=== PATIENT | female | born 1955 | race Caucasian/White ===

== ENCOUNTER 2020-08-08 16:27 | Emergency (ER) | payer BC, SELFPAY ==
[2020-08-08 16:28] VITALS: BP 153/111; PULSE 79; PULSE 86; RESP 18; TEMP 36.8; O2SAT 98; O2SAT 99; BMI 24.8
--- NOTE | 2020-08-08 16:45 | RAD_ITS ---
STUDY: X-RAY - RIGHT SHOULDER REASON FOR EXAM: Female, 65 years old. fall out of truck, right shoulder pain TECHNIQUE: 3 view(s) of the shoulder. COMPARISON: None. FINDINGS: Normal glenohumeral articulation. Normal acromioclavicular joint. Normal acromion. Right clavicle fracture is described on right clavicle x-ray report. Normal humeral head and visualized proximal humerus. The soft tissue structures are unremarkable. Normal visualized pulmonary apex. RAD/Shoulder min 2 Views IMPRESSION: Right clavicle fracture. No additional fracture or malalignment. Electronically Signed: Juan Alberto Marr MD ([facility]) at 17:11 EDT , Service support ,
[2020-08-08] MEDS: fentaNYL 100 MCG/2 ML Ampul 50 MCG IM (16:50)
[2020-08-08] MEDS: Ondansetron ODT 4 MG Tablet PO (16:51)
--- NOTE | 2020-08-08 16:55 | RAD_ITS ---
STUDY: X-RAY - RIGHT CLAVICLE REASON FOR EXAM: Female, 65 years old. fall out of truck, shoulder pain TECHNIQUE: 2 view(s) of the clavicle. COMPARISON: None. FINDINGS: Transverse mildly comminuted fracture of the distal third right clavicle with approximately one shaft width displacement and moderate degree of foreshortening. Normal acromioclavicular articulation. Normal visualized sternoclavicular articulation. Normal visualized pulmonary apex. RAD/Clavicle IMPRESSION: Right clavicle fracture. Electronically Signed: Juan Alberto Marr MD ([facility]) at 17:12 EDT , Service support ,
--- NOTE | 2020-08-08 17:27 | ED.DCSUM_ITS ---
- ER Visit Summary Date of Service: 08/08/20 Chief Complaint: Fall History of Present Illness: The patient is a 65 F who lives in [place]. She is right-hand dominant. She was unloading a pickup truck when she tripped over something and fell out of the back of it. She states that she has pain to her right shoulder and clavicle. She denies any blow to the head or loss of consciousness. She not on anticoagulants. She denies neck, back, left shoulder, wrist, or hip pain. Physical Examination: Vitals: Stable. Afebrile. Neck: No vertebral tenderness. Full ROM without difficulty. Cleared by NEXUS criteria. Back: No vertebral tenderness. General: A&O x 3. NAD. Cardiovascular exam: Regular rate and rhythm, no murmur, rub or gallop. Respiratory exam: Chest nontender. No crepitus. Clear to auscultation bilaterally. No wheezes or stridor. Abdominal exam: Soft, nontender, nondistended, normal bowel sounds. No pain in RUQ or LUQ specifically. No peritoneal signs. Extremity: Obvious deformity to the right clavicle with severe tenderness to palpation. Mild tenderness palpation over the proximal humerus. She is neurovascular intact distal this with normal sensation light touch less than 2- second cap refill. She has 2+ radial pulse. She is able to fire her deltoid. Test Results: Clinical Impression(s) from Imaging Studies Shoulder X-Ray 08/08/20 16:45 IMPRESSION: Right clavicle fracture. No additional fracture or malalignment. Electronically Signed: Juan Alberto Marr MD ([facility]) at 17:11 EDT , Service support , Clavicle X-Ray 08/08/20 16:55 IMPRESSION: Right clavicle fracture. Electronically Signed: Juan Alberto Marr MD ([facility]) at 17:12 EDT , Service support , Emergency Department Course and Treatment: Patient was initially treated with fentanyl IM and Zofran p.o. She was placed in a sling and given oxycodone p.o. Treatment Plan: Patient will be discharged instructions to follow-up with Dr. Marc, an orthopedic surgeon in [place], in 3 to 5 days for another exam. She is given prescription for Percocet and Colace. Return to the emergency department for any worsening symptoms. Disposition: To home in improved and stable condition. Impression: 1. Fall. 2. Right clavicle fracture. This note was generated with [employer] dictation software. It may contain incorrect words, spelling, and punctuation that were not noted in review of the chart prior to signing ED Disposition - Plan for ED Patient: Instructions: ED Clavicle Fracture Prescriptions: Docusate Sodium [Colace] 100 mg PO DAILY #20 capsule Oxycodone HCl/Acetaminophen [Percocet 5/325] 1 tablet PO Q6H PRN PRN 5 Days #20 tablet PRN Reason: Pain Score 6-10/10 Additional Instructions: Follow-up with Dr. Marc in 3 to 5 days. When you call the office tell them that you have a right clavicle fracture that is overlapping by approximately 2 cm.
[2020-08-08 17:38] VITALS: BP 155/91; PULSE 74; O2SAT 98
[2020-08-08] MEDS: oxyCODONE 5 MG Tablet 10 MG PO (17:42)
== END 2020-08-08 17:57 | disposition home or self-care (01) ==
LOC: ED 17:08
PROVIDERS: Emergency Provider Emergency Medicine; PCP Internal Medicine
DX: S42.021A Displaced fracture of shaft of right clavicle, initial encounter for closed fracture (principal); V59.3XXA Occupant (driver) (passenger) of pick-up truck or van injured in unspecified nontraffic accident, initial encounter; Y93.9 Activity, unspecified; Y92.9 Unspecified place or not applicable; Y99.9 Unspecified external cause status; I10 Essential (primary) hypertension; F32.9 Major depressive disorder, single episode, unspecified; Z79.899 Other long term (current) drug therapy
CPT/HCPCS: 73000; 73030; 96372; 99282

== ENCOUNTER 2020-08-13 11:33 | Emergency (ER) | payer BC, SELFPAY ==
[2020-08-13 11:34] VITALS: BP 154/109; PULSE 89; RESP 16; TEMP 36.3; O2SAT 100; BMI 24.5
--- NOTE | 2020-08-13 11:50 | EKG12_ITS ---
Test Reason : SYNCOPE Blood Pressure : / mmHG Vent. Rate : 081 BPM Atrial Rate : 081 BPM P-R Int : 148 ms QRS Dur : 090 ms QT Int : 370 ms P-R-T Axes : -16 007 032 degrees QTc Int : 429 ms Normal sinus rhythm Normal ECG Confirmed by GREY BUCHANAN, LUIS ANGEL ([id number]), film editor supervisor BECKIE KUMAR ([id number]) on 08/16/2020 2:48:32 PM Referred By: AP Confirmed By:CYNTHIA EDMONDS MD
--- NOTE | 2020-08-13 11:50 | CT_ITS ---
STUDY: CT BRAIN WITHOUT CONTRAST REASON FOR EXAM: Female, 65 years old. Headache, fell 5 days ago hitting right posterior head, nausea and whole body numbness today. Hx hypertension. RADIATION DOSAGE (If Supplied By Facility): CTDIvol = ( 44.99 ) mGy, DLP = ( 846.73 ) mGycm TECHNIQUE: Transaxial CT imaging of the brain was performed without administration of intravenous contrast material. Individualized dose optimization techniques were used for this CT. COMPARISON: No relevant priors. FINDINGS: Normal soft tissue structures. Normal calvarium. Normal size ventricles and extra-axial spaces for the patient''s age. Normal white matter tracts of the cerebral hemispheres. Normal basal ganglia and thalami. Normal brainstem. Normal cerebellum. There is no intracranial hemorrhage. There are no findings of an acute ischemic infarction. Normal visualized paranasal sinuses. CT/Brain/Head without Contrast IMPRESSION: Normal unenhanced CT scan of the brain. Electronically Signed: Sandip Delgadillo, at 12:05 EDT , Service support ,
--- NOTE | 2020-08-13 11:55 | RAD_ITS ---
STUDY: X-RAY CHEST REASON FOR EXAM: Female, 65 years old. Recent fall, clavicle fx, weakness, tingling all over body, nausea TECHNIQUE: Single AP portable view of the chest. COMPARISON: None. FINDINGS: The lungs are clear and expanded. Blunting of the right costophrenic angle. Normal size heart. Normal mediastinum and gillian. Normal visualized pulmonary arteries. There is atherosclerotic tortuosity of the aortic arch and descending thoracic aorta. There are degenerative changes of the visualized thoracic spine. Mid right clavicular fracture with overlapping of the fracture fragments. Surgical clips are seen in the epigastric region. RAD/Chest 1 View (Portable) IMPRESSION: The lungs are clear. Blunting of the right costophrenic angle. Electronically Signed: Sandip Delgadillo, at 12:04 EDT , Service support ,
[2020-08-13 11:58] LABS: Absolute Lymphocyte Count 1.24 X10^3/uL (0.83-4.51); Absolute Neutrophil Count 8.7 X10^3/uL (2.0-7.7); Basophil# 0.02 X10^3/uL; Basophil% 0.2 % (0-1); Eosinophil# 0.07 X10^3/uL; Eosinophils% 0.6 % (0-5); Hemoglobin 13.3 g/dL (12.0-15.0); Lymphocyte # 1.24 X10^3/ul (4.0); Lymphocyte % 11.1 % (19-41); Mean Corp Hgb Conc 33.3 g/dL (32-36); Mean Corpuscular Hgb 31.8 pg (27.0-32.0); Mean Corpuscular Volume 95.7 fL (81-99); Mean Platelet Vol. 8.5 fl (6.2-12.0); Monocyte# 0.95 X10^3/uL; Monocyte% 8.5 % (0-10); NRBC Flagged by Analyzer 0 % (0-5); Neutrophil % 77.8 % (47-70); Platelet Count 329 K/mm3 (150-450); RBC Distribution Width CV 12.2 % (11.6-14.6); RBC Distribution Width SD 42.8 fl (35.1-43.9); Red Blood Count 4.18 M/mm3 (4.2-5.4); White Blood Count 11.2 K/mm3 (4.4-11.0)
[2020-08-13 12:03] LABS: Prothrombin Time (Protime)PT. 12.7 SECONDS (11.7-14.9)
[2020-08-13 12:04] LABS: Partial Thromboplast Time 27.7 Seconds (24.1-36.2)
[2020-08-13 12:13] LABS: Anion Gap 5 (5-15); BUN 12 mg/dL (7-18); BUN/Creat Ratio 23.3 RATIO (10-20); Calcium,Total 10.1 mg/dL (8.5-10.1); Chloride 98 mmol/L (98-107); Creatinine, Serum 0.51 mg/dL (0.55-1.02); EST Glomerular Filtration Rate 128 mL/min (>60); Est Glom Filt Rate - Afr Amer 155 mL/min (>60); Glucose 134 mg/dL (74-106); Potassium 3.8 mmol/L (3.5-5.1); Sodium Level 133 mmol/L (136-145)
--- NOTE | 2020-08-13 12:19 | ED.VIS.GEN ---
History of Present Illness Informant: Patient, Family Onset: Today Context: Gradual Onset Timing: Continuous Quality: Generalized weakness Location: Generalized Current Severity: Severe Maximum Severity: Severe Worsened by: Nothing Relieved by: Nothing Associated Symptoms: Nausea Narrative: 65-year-old female history of gastric bypass presents to the emergency department with generalized weakness. Patient seen here 5 days ago and diagnosed with a right clavicle fracture. Has been doing well at home up until about 2 hours ago she started to complain to her that she felt weak she was having tingling sensation throughout her entire body and nauseated. She denies headache denies vomiting denies blurry vision double vision or loss of vision. Denies any weakness or numbness. Denies difficulty with speech or difficulty with ambulation. Denies fevers chills cough chest pain or shortness of breath. Denies abdominal pain or back pain. She is not on anticoagulation. Rest of her review of systems are negative Prior similar symptoms: No Recent Illness/Hospitalization: No <Augustus Jiang - Last Filed: 08/13/20 13:44> <Brennan Russ - Last Filed: 08/13/20 15:23> Chief Complaint: Head Injury Past Medical History Prior records reviewed: Yes Past Medical History: None Surgical History: - - Gastric bypass Lives: With Family Smoking Status: Former smoker Alcohol: Occasional Drugs: None <Augustus Jiang - Last Filed: 08/13/20 13:44> <Brennan Russ - Last Filed: 08/13/20 15:23> - Allergies and Home Meds Allergies/Adverse Reactions: Allergies neomycin Adverse Reaction (Verified 08/13/20 11:34) Rash Primary Care Physician: Tamie Coronel MD [Primary Care Provider] - Review of Systems All systems negative except as indicated General: Reports: Malaise. Denies: Chills, Fever, Sweats Eyes: Denies: Visual changes - bilaterally, Diplopia ENT: Denies: Rhinorrhea, Sore throat Cardiovascular: Denies: Chest pain, Palpitations Respiratory: Denies: Dyspnea, Cough, Sputum, Dyspnea on exertion Gastrointestinal: Reports: Nausea. Denies: Abdominal pain, Vomiting, Diarrhea, Melena, Hematochezia Genitourinary: Denies: Dysuria, Hematuria, Frequency Musculoskeletal: Reports: Swelling, Extremity Pain. Denies: Back pain Skin: Reports: - - Right clavicle. Denies: Rash, Wounds Neurological: Denies: Headache, Weakness, Numbness <Augustus Jiang - Last Filed: 08/13/20 13:44> Physical Exam Vital Signs/Narrative: Vital Signs Temp Pulse Resp BP Pulse Ox 08/13/20 11:34 97.4 F L 89 16 154/109 H 100 Inital Vital Signs reviewed: Yes General: Well nourished, Well developed, No Acute Distress Head: Normocephalic, Atraumatic Eyes: Perrl, EOMI ENT: Moist mucous membranes, No rhinorrhea Neck: Supple, Nontender Cardiovascular: Regular rate, Regular rhythm, No murmurs Respiratory: No distress, CTA bilaterally, Chest nontender Abdomen: Soft, Nontender, Nondistended, Normal bowel sounds Back: Nontender, Normal Inspection Extremities: No edema, Tenderness - Bruising swelling right clavicle. Skin intact. No deformity. Skin: Normal color, No rash Neurological: Alert, Oriented x3, Cranial nerves II-XII grossly intact, Normal Strength, Normal Sensation, - - NIH stroke scale 0 Psychological: Normal affect, Normal Mood <Augustus Jiang - Last Filed: 08/13/20 13:44> Vital Signs/Narrative: Vital Signs Temp Pulse Resp BP Pulse Ox 08/13/20 11:34 97.4 F L 89 16 154/109 H 100 <Brennan Russ - Last Filed: 08/13/20 15:23> Diagnostic/Tx/Re-eval Chest X-Ray - ED: 1 View, Read by ED Physician, Read by Radiologist, No Acute Disease - Rhythm Strip Rhythm Strip: Sinus Rhythm Rate: 81 Ectopy: None - EKG Initial EKG Interpretation: Sinus Rhythm, No Acute Injury Pattern Prior: Unchanged - Medical Decision Making NIH stroke scale on arrival was 0. The patient states that she just does not feel well in general and feels weak. Acute comprehensive work-up was pursued. CT scan of the brain was unremarkable. Chest x-ray unremarkable. Laboratory work-up shows a white blood cell count of 11 otherwise unremarkable. Urinalysis is positive nitrates with 3+ bacteria. Will treat for UTI. Repeat exam patient is feeling well she is ambulatory she looks much better her vital signs are stable. After further discussion with patient and family they feel could have been a reaction to the tramadol. Therefore we will discontinue this and we will place her on Percocet as she cannot tolerate Vicodin. She will continue to follow with orthopedics for her clavicle fracture and we will start her on Keflex and send off a urine culture. <Augustus Jiang - Last Filed: 08/13/20 13:44> - Medical Decision Making Patient was seen with me. I did a [id number] examination with the patient. Patient presents with not feeling well and weakness. Patient states she fell recently and fractured her clavicle. Patient does not think she hit her head at that time. However given the general weakness and not feeling well, she is unsure if she hit her head. Patient took 2 doses of tramadol today. Patient also took 2 extra strength Tylenol today. Patient denies any chest pain or shortness of breath. Vital signs are stable. Patient is afebrile. Patient is in no acute distress. Oral mucosa is pink and moist. Neck is supple. Trachea is midline. There is no JVD. Heart was regular rate and rhythm. Lungs are clear and equal bilaterally. Abdomen is soft. Bowel sounds are normal. There is no tenderness. There is no rebound or guarding noted. Cranial nerves II through XII are intact. Strength is 5/5 bilaterally upper and lower extremities. There are no sensory deficits noted. CT scan of the brain was obtained. There is no acute intracranial abnormality. Portable chest x-ray was obtained. There is no acute cardiopulmonary process. CBC shows a slight leukocytosis of 11. Urinalysis shows positive nitrates with 3+ bacteria. Patient was given IV fluids. Patient was feeling better on reevaluation. Patient was given a prescription for Keflex. Patient was also given a prescription for Percocet and instructed to stop taking the tramadol. Patient was instructed to return if worse in any way. Patient understood and was agreeable with the plan. All questions were answered. <Brennan Russ - Last Filed: 08/13/20 15:23> ED Disposition <Augustus Jiang - Last Filed: 08/13/20 13:44> <Brennan Russ - Last Filed: 08/13/20 15:23> - Plan for ED Patient: Disposition: Home or Assisted Living Diagnosis: UTI (urinary tract infection), Generalized weakness Instructions: ED CYSTITIS Female Adult Prescriptions: Cephalexin [Keflex] 500 mg PO Q12 #14 cap Transmission Status: Received by [id number] Oxycodone HCl/Acetaminophen [Percocet 5/325] 1 tab PO Q6H PRN PRN 3 Days #12 tab PRN Reason: Pain Transmission Status: Received by [id number] Ondansetron [Zofran Odt] 4 mg PO Q8H PRN PRN #10 tab PRN Reason: Nausea Transmission Status: Received by [id number] Referrals: Tamie Coronel MD [Primary Care Provider] -
[2020-08-13 12:42] LABS: Mucous, Urine 0 SEEN /hpf (<or=2+); Red Blood Cells-Urine 0 SEEN /hpf (0-5); Squamous Epithelial Cells - UA 0 SEEN /hpf (5-10)
[2020-08-13 12:44] LABS: Glucose, Dipstick Normal (Normal); Ketone-Dipstick 5 mg/dl (Negative); Leukocyte Esterase-Dipstick 25 /ul (Negative); Nitrite-Dipstick Positive (Negative); Occult Blood-Urine 10 /ul (Negative); Protein-Dipstick 15 mg/dl (Negative); Specific Gravity, Urine 1.015 (1.002-1.030); Urine Bilirubin Dipstick Negative (Negative); Urine Urobilinogen 4 mg/dl (Normal)
[2020-08-13 13:05] LABS: Color, Urine Yellow (Yellow); Urine Clarity Cloudy (Clear)
[2020-08-13 13:06] LABS: Bacteria 3+ /hpf (None Seen); White Blood Cells 0-5 SEEN /hpf (0-5)
[2020-08-13] MEDS: Cephalexin 250 MG Capsule 500 MG PO (13:59)
== END 2020-08-13 14:04 | disposition home or self-care (01) ==
PROVIDERS: Emergency Provider Physician Assistant Medical; PCP Internal Medicine
DX: N39.0 Urinary tract infection, site not specified (principal); R53.1 Weakness; R11.0 Nausea; S42.001D Fracture of unspecified part of right clavicle, subsequent encounter for fracture with routine healing; W19.XXXD Unspecified fall, subsequent encounter; Z79.899 Other long term (current) drug therapy; Z98.84 Bariatric surgery status; Z87.891 Personal history of nicotine dependence
CPT/HCPCS: 70450; 71045; 80048; 81001; 84484; 85025; 85610; 85730; 87077; 87086; 87088; 87186; 93005; 99285; P9612; A4216

== ENCOUNTER → 2020-08-18 09:55 | Outpatient (CLI) | payer BC, SELFPAY ==
[2020-08-13 11:34] VITALS: BMI 24.5
== END ==
PROVIDERS: PCP Internal Medicine; Referring Provider Physician Assistant; Visit Provider Physician Assistant
DX: Z11.59 Encounter for screening for other viral diseases (principal)
CPT/HCPCS: 87635; C9803; U0003

== ENCOUNTER → 2020-08-24 10:02 | Outpatient (CLI) | payer BC, SELFPAY ==
[2020-08-13 11:34] VITALS: BMI 24.5
[2020-08-24 12:44] LABS: Bacteria 0 SEEN /hpf (None Seen); Mucous, Urine 0 SEEN /hpf (<or=2+); Red Blood Cells-Urine 0 SEEN /hpf (0-5); Squamous Epithelial Cells - UA 0 SEEN /hpf (5-10); White Blood Cells 0 SEEN /hpf (0-5)
[2020-08-24 13:39] LABS: Color, Urine Yellow (Yellow); Glucose, Dipstick Normal (Normal); Ketone-Dipstick Negative (Negative); Leukocyte Esterase-Dipstick 25 /ul (Negative); Nitrite-Dipstick Negative (Negative); Occult Blood-Urine Negative /ul (Negative); Protein-Dipstick Negative (Negative); Specific Gravity, Urine 1.015 (1.002-1.030); Urine Bilirubin Dipstick Negative (Negative); Urine Clarity Clear (Clear); Urine Urobilinogen Normal (Normal)
== END ==
PROVIDERS: PCP Internal Medicine; Referring Provider Physician Assistant; Visit Provider Physician Assistant
DX: N39.0 Urinary tract infection, site not specified (principal)
CPT/HCPCS: 81001